=== PATIENT | male | born 1985 | race African-American/Black ===

== ENCOUNTER 2020-08-29 08:23 | Inpatient (IN) | payer SELFPAY ==
[~2020-08-29] VITALS: Ht 172.7 cm; Wt 55.5 kg
[2020-08-29] MEDS ORDERED: NS 1,000 ML IV ONE (08:40)
[2020-08-29] MEDS ORDERED: ONDANSETRON 4MG/2ML VIAL IV ONE (08:45)
[2020-08-29] MEDS ORDERED: PANTOPRAZOLE 40MG VIAL (C9113 PER 1) IV SCH (09:00)
[2020-08-29 09:04] LABS: VENOUS BASE EXCESS -26.1 (-2.0-2.0); VENOUS O2 SATURATION 89.6 % (60.0-80.0); VENOUS PARTIAL PRESSURE CO2 23.3 mmHg (38.0-50.0); VENOUS PARTIAL PRESSURE O2 74.7 mmHg (30.0-50.0); VENOUS PH 6.949 UNITS (7.330-7.430); VENOUS STANDARD HCO3 7.3 MEQ/L; VENOUS TOTAL CO2 5.7 MEQ/L (24.0-28.0)
[2020-08-29 09:10] LABS: BASO # 0.1 10^3/uL (0.0-0.2); BASO % 0.3 % (0.0-1.0); EOS % 0.1 % (0.0-3.0); HEMATOCRIT 50.7 % (42.0-52.0); HEMOGLOBIN 15.3 g/dl (13.5-17.5); LYMPH # 1.1 10^3/uL (1.5-5.0); LYMPH % 6.4 % (24.0-44.0); MEAN CORPUSCULAR HEMOGLOBIN 26.6 pg (27.0-33.0); MEAN CORPUSCULAR HGB CONC 30.2 g/dl (32.0-36.5); MEAN CORPUSCULAR VOLUME 88.2 fl (80.0-96.0); MONO # 0.5 10^3/uL (0.0-0.8); MONO % 3.1 % (2.0-8.0); NEUTROPHILS # 15.2 10^3/uL (1.5-8.5); NEUTROPHILS % 88.3 % (36.0-66.0); PLATELET COUNT, AUTOMATED 308 10^3/uL (150-450); RED BLOOD COUNT 5.75 10^6/uL (4.30-6.10); WHITE BLOOD COUNT 17.2 10^3/uL (4.0-10.0)
[2020-08-29 09:20] LABS: OSMOLALITY SERUM 337 MOSM/KG (275-295)
[2020-08-29 09:22] LABS: MAGNESIUM LEVEL 2.6 MG/DL (1.8-2.4); PHOSPHORUS LEVEL 7.6 MG/DL (2.5-4.9)
[2020-08-29] MEDS ORDERED: HumuLIN R (REGULAR) INSULIN (NovoLIN R) **100U/ML** PER UNIT IV ONE (09:25)
[2020-08-29 09:35] LABS: ACETAMINOPHEN LEVEL < 2.0 UG/ML (10.0-30.0); ALBUMIN 4.5 GM/DL (3.2-5.2); ALT/SGPT 39 U/L (12-78); BILIRUBIN,DIRECT < 0.1 MG/DL (0.0-0.2); BILIRUBIN,TOTAL 0.5 MG/DL (0.2-1.0); BLOOD UREA NITROGEN 27 MG/DL (7-18); CALCIUM LEVEL 9.8 MG/DL (8.5-10.1); CARBON DIOXIDE LEVEL 6 MEQ/L (21-32); CHLORIDE LEVEL 87 MEQ/L (98-107); CK-MB VALUE MASS < 1.0 NG/ML (<3.6); CPK CREATINE PHOSPHOKINASE 63 U/L (39-308); CREATININE FOR GFR 1.72 MG/DL (0.70-1.30); ETHYL ALCOHOL (ETHANOL) < 0.003 % (0.000-0.010); GLUCOSE, FASTING 769 MG/DL (70-100); MB/CK RELATIVE INDEX 1.59 (< OR =4); POTASSIUM SERUM 5.3 MEQ/L (3.5-5.1); SALICYLATE LEVEL 6.7 MG/DL (5.0-30.0); SODIUM LEVEL 127 MEQ/L (136-145); TOTAL PROTEIN 7.8 GM/DL (6.4-8.2); TROPONIN I < 0.02 NG/ML (< 0.10)
[2020-08-29] MEDS ORDERED: NS IV ONE (09:45)
[2020-08-29] MEDS ORDERED: INSULIN REGULAR IN 0.9 % NACL 100 UNIT in IV 1 EA IV SCH ×4 (09:45→13:45)
[2020-08-29] MEDS ORDERED: INSULIN IV RATE CHANGE DOCUMENTATION ML/HR XX SCH (09:45)
[2020-08-29] MEDS ORDERED: LevoFLOXacin IV 750 MG in IV 1 EA IV ONE (09:45)
[2020-08-29] MEDS ORDERED: LANTINJ4 SC (09:48)
[2020-08-29] MEDS ORDERED: INSUHUMDS SC (09:48)
[2020-08-29 10:22] LABS: RSV AMPLIFICATION NEGATIVE (NEGATIVE)
[2020-08-29 10:32] LABS: ACETONE/KETONE > 46.00 MG/DL (<2.81)
[2020-08-29 10:47] LABS: AMPHETAMINES LEVEL URINE NEGATIVE (NEGATIVE); BARBITURATES URINE NEGATIVE (NEGATIVE); BENZODIAZEPINES URINE NEGATIVE (NEGATIVE); CANNABINOIDS URINE POSITIVE (NEGATIVE); COCAINE METABOLITE URINE NEGATIVE (NEGATIVE); METHADONE URINE NEGATIVE (NEGATIVE); OPIATES URINE NEGATIVE (NEGATIVE); PHENCYCLIDINE URINE NEGATIVE (NEGATIVE)
[2020-08-29] MEDS ORDERED: ONDANSETRON 4MG/2ML VIAL IV PRN (12:20)
[2020-08-29] MEDS: NS 1,000 ML IV SCH ×2 (12:20→15:20)
[2020-08-29] MEDS ORDERED: SODIUM BICARBONATE 8.4% INJ 50 ML SYRINGE IV SCH (12:40)
[2020-08-29 13:00] VITALS: BP 114/69
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
[2020-08-29 14:41] LABS: HEMOGLOBIN A1c 13.3 %
[2020-08-29 14:45] LABS: BLOOD UREA NITROGEN 25 MG/DL (7-18); CARBON DIOXIDE LEVEL 11 MEQ/L (21-32); CHLORIDE LEVEL 102 MEQ/L (98-107); CREATININE FOR GFR 1.41 MG/DL (0.70-1.30); GLOMERULAR FILTRATION RATE > 60.0 (>60); GLUCOSE, FASTING 303 MG/DL (70-100); PHOSPHORUS LEVEL 2.9 MG/DL (2.5-4.9); POTASSIUM SERUM 4.3 MEQ/L (3.5-5.1); SODIUM LEVEL 136 MEQ/L (136-145)
[2020-08-29] MEDS: INSULIN IV RATE CHANGE DOCUMENTATION ML/HR XX SCH ×7 (14:51→22:10)
[2020-08-29 14:54] LABS: OSMOLALITY SERUM 318 MOSM/KG (275-295)
[2020-08-29 14:58] LABS: BLOOD UREA NITROGEN 27 MG/DL (7-18); CARBON DIOXIDE LEVEL 12 MEQ/L (21-32); CHLORIDE LEVEL 102 MEQ/L (98-107); CREATININE FOR GFR 1.46 MG/DL (0.70-1.30); GLOMERULAR FILTRATION RATE > 60.0 (>60); GLUCOSE, FASTING 296 MG/DL (70-100); PHOSPHORUS LEVEL 2.9 MG/DL (2.5-4.9); POTASSIUM SERUM 4.3 MEQ/L (3.5-5.1); SODIUM LEVEL 136 MEQ/L (136-145); TROPONIN I < 0.02 NG/ML (< 0.10)
[2020-08-29 16:00] VITALS: BP 108/62
[2020-08-29] MEDS: KCL 20MEQ IN D5/0.45NS 1000ML 1,000 ML IV SCH ×2 (16:45→22:08)
--- NOTE | 2020-08-29 20:11 | ECGEPIP ---
[facility] - ED Test Date: 2020-08-29 Pat Name: ELAYNE VILLAFUERTE Department: Room: - Gender: Male Vp Respiratory: : 1985 Requested By: DONALD Argueta Order Number: [id number] Reading MD: Cookie Lopez Measurements Intervals [place] Rate: 112 P: 80 ID: [id number] QRS: -64 QRSD: 84 T: 45 QT: 336 QTc: 458 Interpretive Statements Sinus tachycardia Left axis deviation prominent T waves No prior Electronically Signed on 08-29-2020 20:11:05 EDT by Cookie Lopez
[2020-08-29 21:00] VITALS: BP 114/70
[2020-08-30] VITALS (7 sets, daily range): BP systolic 96–122; BP diastolic 59–86
[2020-08-30] MEDS: INSULIN IV RATE CHANGE DOCUMENTATION ML/HR XX SCH ×3 (00:24→02:17)
[2020-08-30 01:01] LABS: BLOOD UREA NITROGEN 20 MG/DL (7-18); CALCIUM LEVEL 8.4 MG/DL (8.5-10.1); CARBON DIOXIDE LEVEL 22 MEQ/L (21-32); CHLORIDE LEVEL 107 MEQ/L (98-107); CREATININE FOR GFR 0.95 MG/DL (0.70-1.30); GLOMERULAR FILTRATION RATE > 60.0 (>60); GLUCOSE, FASTING 152 MG/DL (70-100); PHOSPHORUS LEVEL 2.3 MG/DL (2.5-4.9); POTASSIUM SERUM 3.9 MEQ/L (3.5-5.1); SODIUM LEVEL 136 MEQ/L (136-145); TROPONIN I < 0.02 NG/ML (< 0.10)
[2020-08-30] MEDS ORDERED: POTASSIUM PHOSPHATE INJ 20 MMOL in D5W 250 ML IV ONE (02:00)
[2020-08-30] MEDS ORDERED: GLUCAGON INJ 1MG VIAL SC PRN (02:45)
[2020-08-30] MEDS ORDERED: DEXTROSE 50% 50 ML SYRINGE IV PRN (02:45)
[2020-08-30] MEDS ORDERED: GLUCOSE 4GM CHEW TABLET PO PRN (02:45)
[2020-08-30] MEDS ORDERED: LEVEMIR (INSULIN DETEMIR) 1 UNITS/0.01ML SC SCH (02:45)
[2020-08-30] MEDS: KCL 20MEQ IN D5/0.45NS 1000ML 1,000 ML IV SCH ×3 (03:00→18:08)
[2020-08-30 04:32] LABS: VENOUS BASE EXCESS -4.5 (-2.0-2.0); VENOUS HCO3 21.6 MEQ/L (23.0-27.0); VENOUS O2 SATURATION 88.3 % (60.0-80.0); VENOUS PARTIAL PRESSURE CO2 43.1 mmHg (38.0-50.0); VENOUS PARTIAL PRESSURE O2 52.5 mmHg (30.0-50.0); VENOUS PH 7.317 UNITS (7.330-7.430); VENOUS STANDARD HCO3 20.6 MEQ/L; VENOUS TOTAL CO2 22.9 MEQ/L (24.0-28.0)
[2020-08-30 04:41] LABS: BASO % 0.1 % (0.0-1.0); EOS % 0.1 % (0.0-3.0); HEMATOCRIT 38.9 % (42.0-52.0); HEMOGLOBIN 13.1 g/dl (13.5-17.5); LYMPH # 0.9 10^3/uL (1.5-5.0); LYMPH % 7.5 % (24.0-44.0); MEAN CORPUSCULAR HEMOGLOBIN 26.8 pg (27.0-33.0); MEAN CORPUSCULAR HGB CONC 33.7 g/dl (32.0-36.5); MEAN CORPUSCULAR VOLUME 79.7 fl (80.0-96.0); MONO # 0.8 10^3/uL (0.0-0.8); NEUTROPHILS # 9.6 10^3/uL (1.5-8.5); NEUTROPHILS % 84.9 % (36.0-66.0); PLATELET COUNT, AUTOMATED 244 10^3/uL (150-450); RED BLOOD COUNT 4.88 10^6/uL (4.30-6.10); WHITE BLOOD COUNT 11.3 10^3/uL (4.0-10.0)
[2020-08-30 04:59] LABS: OSMOLALITY SERUM 289 MOSM/KG (275-295)
[2020-08-30 05:01] LABS: ACETONE/KETONE 1.68 MG/DL (<2.81); BLOOD UREA NITROGEN 19 MG/DL (7-18); CALCIUM LEVEL 8.3 MG/DL (8.5-10.1); CARBON DIOXIDE LEVEL 24 MEQ/L (21-32); CHLORIDE LEVEL 106 MEQ/L (98-107); GLOMERULAR FILTRATION RATE > 60.0 (>60); GLUCOSE, FASTING 177 MG/DL (70-100); MAGNESIUM LEVEL 1.9 MG/DL (1.8-2.4); PHOSPHORUS LEVEL 2.1 MG/DL (2.5-4.9); POTASSIUM SERUM 3.5 MEQ/L (3.5-5.1); SODIUM LEVEL 136 MEQ/L (136-145)
[2020-08-30] MEDS ORDERED: KCL 10MEQ/100ML SWI (KRUN) 10 MEQ in IV 1 EA IV SCH (08:00)
[2020-08-30 08:23] LABS: BLOOD UREA NITROGEN 17 MG/DL (7-18); CARBON DIOXIDE LEVEL 23 MEQ/L (21-32); CHLORIDE LEVEL 107 MEQ/L (98-107); CREATININE FOR GFR 0.94 MG/DL (0.70-1.30); GLOMERULAR FILTRATION RATE > 60.0 (>60); GLUCOSE, FASTING 149 MG/DL (70-100); POTASSIUM SERUM 4.3 MEQ/L (3.5-5.1); SODIUM LEVEL 137 MEQ/L (136-145)
[2020-08-30] MEDS: PANTOPRAZOLE 40MG TAB (PROTONIX) PO SCH (08:50)
[2020-08-30] MEDS: HumaLOG INSULIN (NovoLOG) PER UNIT SC SCH ×3 (09:00→17:29)
--- NOTE | 2020-08-30 10:33 | IPN ---
PROGRESS NOTE DATE: 08/30/2020 SUBJECTIVE: Juancarlos is seen in the ICU. He is not very communicative this morning preferring to sleep than to cooperate with history or cooperative with exam. His blood sugars came down and he was taken off his Insulin drip, given 20 units of Detemir Insulin last night and is currently on a sliding scale of insulin. He was hypokalemic this morning but is improved. OBJECTIVE: VITAL SIGNS: Afebrile, vital signs stable, blood pressure 109/68. GENERAL APPEARANCE: He is alert but lying in bed and not very talkative. LUNGS: Clear. HEART: Regular rate and rhythm. ABDOMEN: Soft, nontender. EXTREMITIES: No peripheral edema. Normal strength in the arms and legs. LABS: Most recent potassium is 4. Anion gap is down to 7. Creatinine is 0.9. Blood sugars have been below 200 overnight. White count is 11.3, hemoglobin 13, platelets 244. IMPRESSION AND PLAN: 1. DKA. This has resolved. He can move out of the ICU and up to the floor. Continue IV fluids, D5 half normal saline for now. 2. Type 1 diabetes. He is on Detemir Insulin with sliding scale for coverage. He uses Lantus Insulin at home twice a day but cannot remember what dose he uses. 3. Acute kidney injury. This responded to hydration. 4. Leukocytosis. Stress reaction suspected. He got a single dose of Levaquin on admission. I did not continue this. There was no sign of active infection. 5. Hypokalemia. This is improved with his IV fluids.
[2020-08-30 15:23] LABS: BLOOD UREA NITROGEN 15 MG/DL (7-18); CALCIUM LEVEL 9.4 MG/DL (8.5-10.1); CARBON DIOXIDE LEVEL 24 MEQ/L (21-32); CHLORIDE LEVEL 104 MEQ/L (98-107); CREATININE FOR GFR 0.92 MG/DL (0.70-1.30); GLOMERULAR FILTRATION RATE > 60.0 (>60); GLUCOSE, FASTING 98 MG/DL (70-100); POTASSIUM SERUM 3.5 MEQ/L (3.5-5.1); SODIUM LEVEL 140 MEQ/L (136-145)
[2020-08-30 19:29] LABS: BLOOD UREA NITROGEN 15 MG/DL (7-18); CALCIUM LEVEL 8.3 MG/DL (8.5-10.1); CARBON DIOXIDE LEVEL 24 MEQ/L (21-32); CHLORIDE LEVEL 104 MEQ/L (98-107); CREATININE FOR GFR 0.92 MG/DL (0.70-1.30); GLOMERULAR FILTRATION RATE > 60.0 (>60); GLUCOSE, FASTING 300 MG/DL (70-100); POTASSIUM SERUM 3.7 MEQ/L (3.5-5.1); SODIUM LEVEL 137 MEQ/L (136-145)
[2020-08-30] MEDS ORDERED: RAMELTEON 8 MG TAB (ROZEREM) PO PRN (20:05)
[2020-08-30] MEDS ORDERED: HumaLOG INSULIN (NovoLOG) PER UNIT SC SCH (21:00)
[2020-08-31] MEDS: KCL 20MEQ IN D5/0.45NS 1000ML 1,000 ML IV SCH (04:09)
[2020-08-31 06:00] VITALS: BP 123/87
[2020-08-31 06:43] LABS: BASO % 0.1 % (0.0-1.0); EOS % 0.3 % (0.0-3.0); HEMATOCRIT 38.4 % (42.0-52.0); LYMPH % 12.4 % (24.0-44.0); MEAN CORPUSCULAR HEMOGLOBIN 26.6 pg (27.0-33.0); MEAN CORPUSCULAR HGB CONC 33.9 g/dl (32.0-36.5); MEAN CORPUSCULAR VOLUME 78.5 fl (80.0-96.0); MONO # 0.5 10^3/uL (0.0-0.8); MONO % 6.8 % (2.0-8.0); NEUTROPHILS # 6.2 10^3/uL (1.5-8.5); NEUTROPHILS % 80.1 % (36.0-66.0); PLATELET COUNT, AUTOMATED 204 10^3/uL (150-450); RED BLOOD COUNT 4.89 10^6/uL (4.30-6.10); WHITE BLOOD COUNT 7.8 10^3/uL (4.0-10.0)
[2020-08-31] MEDS: HumaLOG INSULIN (NovoLOG) PER UNIT SC SCH (06:56)
[2020-08-31 07:16] LABS: BLOOD UREA NITROGEN 14 MG/DL (7-18); CALCIUM LEVEL 8.6 MG/DL (8.5-10.1); CARBON DIOXIDE LEVEL 24 MEQ/L (21-32); CHLORIDE LEVEL 102 MEQ/L (98-107); CREATININE FOR GFR 0.66 MG/DL (0.70-1.30); GLOMERULAR FILTRATION RATE > 60.0 (>60); GLUCOSE, FASTING 412 MG/DL (70-100); POTASSIUM SERUM 4.3 MEQ/L (3.5-5.1); SODIUM LEVEL 133 MEQ/L (136-145)
[2020-08-31] MEDS: PANTOPRAZOLE 40MG TAB (PROTONIX) PO SCH (08:10)
[2020-08-31] MEDS ORDERED: LEVEMIR (INSULIN DETEMIR) 1 UNITS/0.01ML SC SCH (09:00)
--- NOTE | 2020-08-31 10:04 | IPN ---
PROGRESS NOTE DATE: 08/31/2020 SUBJECTIVE: Juancarlos is on 5 Vo. His diabetes has come under good control. Insurance issues are complicating his discharge. He does not have any insurance and they are working on getting that set up today. No polyuria or polydipsia. Blood sugars were moderately elevated this morning. Anion gap remains low. OBJECTIVE: VITAL SIGNS: Stable. HEENT: Shows poor dentition. LUNGS: Clear. HEART: Regular rhythm. ABDOMEN: Soft and nontender with no peripheral edema. LABORATORY DATA: Sodium 133, potassium 4.3, creatinine 0.6, glucose 400. IMPRESSION: 1. Diabetic ketoacidosis (DKA). This is resolved. 2. Type 1 diabetes. I will increase the dose of his detemir insulin and continue sliding scale insulin coverage. 3. Acute kidney injury. This has resolved. 4. Hypokalemia. This has also resolved. 5. Leukocytosis. White count is down to normal. This has steadily improved reinforcing the belief this was just a stress leukocytosis. I did not continue antibiotics after the initial dose given in the emergency room. DISPOSITION/PLAN: He does not have any insurance and [facility] is working on this. I will send his prescriptions to his pharmacy (once one is entered the "preferred pharmacy" in [facility] is in [place], [place], so that does not really help very much).
--- NOTE | 2020-09-01 12:21 | DSES ---
DISCHARGE SUMMARY DATE OF ADMISSION: 08/29/2020 DATE OF DISCHARGE: 08/31/2020 (Left against medical advice) DIAGNOSES: 1. Diabetic ketoacidosis (DKA) 2. Type 1 diabetes 3. Suspected oppositional defiant disorder. 4. Noncompliance with medical treatment. BRIEF HISTORY: Juancarlos Frias was admitted with diabetic ketoacidosis (DKA). He could not remember the last time he took an insulin injection. HOSPITAL COURSE: He was treated with diabetic ketoacidosis (DKA) in the conventional fashion, was transferred up to the floor. Anticipated that based on his antisocial behavior from admission, he would probably be against medical advice (AMA). So I counseled about the risks of this on admission, as well as the morning that he did leave. He left against medical advice (AMA) and did not provide us with the opportunity to give him insulin syringes, test strips, etc.
== END 2020-08-31 11:00 | disposition left against medical advice (07) | DRG 420 ==
LOC: M ED 08:23 → M ED INP 13:14 → ENRESERV 13:50 → M ICU 14:44 → M MS5PR 08-30 09:10
PROVIDERS: ADMIT Family Medicine; ATTEND Family Medicine
DX: E10.10 Type 1 diabetes mellitus with ketoacidosis without coma (principal); N17.9 Acute kidney failure, unspecified; E10.65 Type 1 diabetes mellitus with hyperglycemia; Z91.19 Patient's noncompliance with other medical treatment and regimen; E87.6 Hypokalemia; F91.3 Oppositional defiant disorder; Z88.0 Allergy status to penicillin; F17.200 Nicotine dependence, unspecified, uncomplicated; F10.10 Alcohol abuse, uncomplicated; E87.1 Hypo-osmolality and hyponatremia